=== PATIENT | male | born 1945 | race Caucasian/White ===

== ENCOUNTER → 2020-08-16 | Outpatient (CLI) | payer OTHER | END | disposition home or self-care (01) | LOC: RAH 11:06 | PROVIDERS: ATTEND Orthopaedic Surgery | DX: I73.9 Peripheral vascular disease, unspecified (principal); I48.91 Unspecified atrial fibrillation | CPT/HCPCS: 93005; 93922 ==

== ENCOUNTER 2020-11-17 17:40 | Emergency (ER) | payer OTHER, MEDICARE ==
[2020-11-17 18:39] LABS: BASOPHILS % (AUTO) 0.3 % (0.0-5.0); EOSINOPHILS % (AUTO) 2.4 % (0.0-8.0); HEMATOCRIT 33.7 % (42-54); LYMPHOCYTES % (AUTO) 9.8 % (21.0-51.0); MEAN CORPUSCULAR HGB CONC 31.8 g/dL (32.0-36.0); MEAN CORPUSCULAR VOLUME 100.9 fL (79-99); NEUTROPHILS % (AUTO) 79.1 % (40.0-77.0); PLATELET COUNT (AUTO) 236 K/uL (130-400); RED BLOOD CELL COUNT(AUTO) 3.34 MIL/uL (4.50-6.20); RED CELL DISTRIBUTION WIDTH 14.6 % (11.0-15.5); WHITE BLOOD COUNT (AUTO) 7.2 K/uL (4.8-10.8)
[2020-11-17 18:49] LABS: CREATININE 1.5 mg/dL (0.5-1.5); POTASSIUM 3.8 mmol/L (3.5-5.1)
[2020-11-17 18:52] LABS: ABG BASE EXCESS -0.4 mmol/L (-2.0-3.0); ABG OXYGEN SATURATION 97.2 % (95.0-99.0); ABG PCO2 34 mmHg (35-48)
[2020-11-17 18:54] LABS: ALBUMIN 3.2 g/dL (3.5-5.0); BILIRUBIN,TOTAL 0.9 mg/dL (0.2-1.0); RAPID GROUP A STREP NEGATIVE (NEGATIVE); TOTAL PROTEIN, SERUM 7.6 g/dL (6.0-8.3)
[2020-11-17 19:20] LABS: B-TYPE NATRIURETIC PEPTIDE 658 pg/mL (0-100)
[2020-11-17] MEDS ORDERED: GUAIFENESIN-DM 200/20 MG 10 ML ONE (19:57)
[2020-11-17] MEDS ORDERED: CEFTRIAXONE SODIUM 1 GM ONE (19:58)
== END 2020-11-17 20:17 | disposition home or self-care (01) ==
LOC: EDH 17:40
DX: U07.1 COVID-19 (principal); R06.00 Dyspnea, unspecified; E11.9 Type 2 diabetes mellitus without complications; I25.10 Atherosclerotic heart disease of native coronary artery without angina pectoris; Z98.890 Other specified postprocedural states
CPT/HCPCS: 36415; 36600; 71045; 80053; 82550; 82803; 83880; 84484; 85025; 87426; 87804 ×2; 87880; 93005; 96374; 99285; J0696